=== PATIENT | male | born 1985 | race Caucasian/White ===

== ENCOUNTER 2018-03-27 11:29 | Emergency (ER) | payer MEDICAID ==
[~2018-03-27] VITALS: Ht 177.8 cm; Wt 100.7 kg
[2018-03-27 11:42] VITALS: BP 139/100
== END 2018-03-27 16:55 | disposition home or self-care (01) ==
LOC: ER 11:29
DX: R07.89 Other chest pain (principal); R05 Cough; I25.2 Old myocardial infarction; Y08.89XA Assault by other specified means, initial encounter; Y93.89 Activity, other specified; Y92.89 Other specified places as the place of occurrence of the external cause; Y99.8 Other external cause status
CPT/HCPCS: 71046

== ENCOUNTER 2020-11-04 23:42 | Emergency (ER) | payer SELFPAY ==
[~2020-11-04] VITALS: Ht 177.8 cm; Wt 104.3 kg
[2020-11-04 23:49] VITALS: BP 146/86
[2020-11-05] MEDS ORDERED: ONDANSETRON ODT 4 MG TAB PO ONE (00:45)
== END 2020-11-05 00:40 | disposition left against medical advice (07) ==
LOC: EDSEX 23:42 → EDUNIT# 23:42 → EDBD 23:42 → ER 23:44
DX: R07.89 Other chest pain (principal); Z53.21 Procedure and treatment not carried out due to patient leaving prior to being seen by health care provider
CPT/HCPCS: Q0162